=== PATIENT | male | born 1975 | race Caucasian/White ===

== ENCOUNTER 2017-12-28 21:37 | Inpatient (IN) | payer SELFPAY, OTHER ==
[2017-12-28 21:59] LABS: BILIRUBIN,URINE NEGATIVE (NEG); CLARITY,URINE CLEAR; COLOR,URINE YELLOW; GLUCOSE,URINE NEGATIVE (NEG); NITRITE,URINE NEGATIVE (NEG); PH,URINE 6.5; PROTEIN,URINE NEGATIVE (NEG-TRACE)
[2017-12-28 22:07] LABS: BACTERIA,URINE 0 /HPF (0-FEW); HYALINE CASTS, URINE FEW /HPF; RBC,URINE OCC /HPF (0-2); SQUAMOUS EPITHELIAL CELL,UR OCC /LPF; WBC,URINE OCC /HPF (0-4)
[2017-12-28] MEDS ORDERED: ONDANSETRON PF 4 MG/2 ML VIAL. (22:09)
[2017-12-28] MEDS ORDERED: MORPHINE SULFATE 4 MG/ML DISP.SYRIN. (22:10)
[2017-12-28] MEDS: MORPHINE SULFATE 4 MG/ML DISP.SYRIN. IV (22:10)
[2017-12-28] MEDS: ONDANSETRON PF 4 MG/2 ML VIAL. IV (22:10)
[2017-12-28 22:13] LABS: ADD MAN DIFF? NO
[2017-12-28 22:15] LABS: BASO # 0.1 x10^3/uL (0.0-0.2); BASO % 1 % (0-3); EOS # 0.4 x10^3/uL (0.0-0.7); EOS % 2 % (0-3); HEMOGLOBIN 15.9 g/dL (13.0-17.5); LYMPH % 30 % (24-48); MEAN CORPUSCULAR HEMOGLOBIN 32 pg (25-35); MEAN CORPUSCULAR HGB CONC 35 g/dL (31-37); MEAN CORPUSCULAR VOLUME 89 fL (79-100); MONO # 1.6 x10^3/uL (0.0-1.1); MONO % 9 % (0-9); NEUT # 9.6 x10^3uL (1.8-7.7); NEUT % 58 % (31-73); PLATELET COUNT 369 x10^3/uL (140-400); RED BLOOD COUNT 5.04 x10^6/uL (4.30-5.70); RED CELL DISTRIBUTION WIDTH 13.5 % (11.5-14.5); WHITE BLOOD COUNT 16.7 x10^3/uL (4.0-11.0)
[2017-12-28 22:22] LABS: ANION GAP 5 (6-14); BLOOD UREA NITROGEN 18 mg/dL (8-26); CALCIUM 8.8 mg/dL (8.5-10.1); CARBON DIOXIDE 32 mmol/L (21-32); CHLORIDE 101 mmol/L (98-107); CREATININE 1.3 mg/dL (0.7-1.3); GLUCOSE 142 mg/dL (70-99); POTASSIUM 3.6 mmol/L (3.5-5.1); SODIUM 138 mmol/L (136-145)
[2017-12-28] MEDS: HYDROmorphone 2 MG/ML VIAL IV (22:41)
[2017-12-28] MEDS: PROMETHAZINE 12.5 MG in IV DEXTROSE 5% 50 ML IV (23:00)
[2017-12-28] MEDS: KETOROLAC 30 MG/ML INJ. IV (23:17)
[2017-12-28] MEDS ORDERED: ONDANSETRON PF 4 MG/2 ML VIAL. IV (23:45)
[2017-12-28] MEDS: IV NORMAL SALINE 1000ML BAG 1,000 ML IV (23:45)
[2017-12-29] MEDS: IV NORMAL SALINE 1000ML BAG 1,000 ML IV ×5 (00:40→19:45)
[2017-12-29] MEDS: MORPHINE SULFATE 4 MG/ML DISP.SYRIN. IV ×9 (02:13→23:43)
[2017-12-29 03:57] LABS: BASO % 0 % (0-3); EOS % 0 % (0-3); HEMATOCRIT 42.3 % (39.0-53.0); HEMOGLOBIN 14.4 g/dL (13.0-17.5); LYMPH # 1.3 x10^3/uL (1.0-4.8); LYMPH % 7 % (24-48); MEAN CORPUSCULAR HEMOGLOBIN 31 pg (25-35); MEAN CORPUSCULAR HGB CONC 34 g/dL (31-37); MEAN CORPUSCULAR VOLUME 90 fL (79-100); MONO # 1.6 x10^3/uL (0.0-1.1); MONO % 8 % (0-9); NEUT # 16.6 x10^3uL (1.8-7.7); NEUT % 85 % (31-73); PLATELET COUNT 230 x10^3/uL (140-400); RED CELL DISTRIBUTION WIDTH 13.4 % (11.5-14.5); WHITE BLOOD COUNT 19.6 x10^3/uL (4.0-11.0)
[2017-12-29 04:05] LABS: ADD MAN DIFF? YES
[2017-12-29 04:07] LABS: ANION GAP 6 (6-14); BLOOD UREA NITROGEN 22 mg/dL (8-26); CALCIUM 8.5 mg/dL (8.5-10.1); CARBON DIOXIDE 27 mmol/L (21-32); CHLORIDE 101 mmol/L (98-107); GFR 81.2; GLUCOSE 108 mg/dL (70-99); SODIUM 134 mmol/L (136-145)
[2017-12-29 04:30] LABS: TROPONINI < 0.017 ng/mL (0.000-0.055)
[2017-12-29 04:34] LABS: POTASSIUM 4.2 mmol/L (3.5-5.1)
[2017-12-29] MEDS: IPRATRPIUM/ALBUTEROL 0.5/2.5MG 3 ML NEBU. NEB ×4 (08:21→20:06)
[2017-12-29 09:02] LABS: % BANDS 11 % (0-9); % LYMPHS 11 % (24-48); % MONOS 6 % (0-10); % SEGS 72 % (35-66); PLT ESTIMATE ADEQUATE (ADEQUATE)
[2017-12-29] MEDS ORDERED: CONTRAST GIVEN MC (10:00)
[2017-12-29] MEDS: IOHEXOL 300 MG/ML 100ML VIAL. IV (10:21)
[2017-12-29 10:25] LABS: BARBITURATES NEG (NEG); BENZODIAZEPINES NEG (NEG); CANNABINOIDS NEG (NEG); COCAINE NEG (NEG); METHADONE NEG (NEG); OPIATES NEG (NEG); PHENCYCLIDINE NEG (NEG)
[2017-12-29 10:26] LABS: AMPHETAMINE/METHAMPHETAMINE POS (NEG); ETHANOL, URINE NEG (NEG)
[2017-12-29 12:20] LABS: TROPONINI < 0.017 ng/mL (0.000-0.055)
[2017-12-29] MEDS ORDERED: VANCOMYCIN 1 GM in IV DEXTROSE 5% 250 ML IV (13:15)
[2017-12-29] MEDS: PIPERACILLIN/TAZOBACTAM 3.375 GM in IV NORMAL SALINE 50ML 50 ML IV ×3 (14:33→23:45)
[2017-12-29] MEDS: VANCOMYCIN 2 GM in IV DEXTROSE 5 %-0.2 % NACL 500 ML IV (16:12)
[2017-12-29] MEDS: VANCOMYCIN PER PHARMACY MC (16:20)
[2017-12-29] MEDS: ACETAMINOPHEN 325 MG TABLET. PO (18:32)
[2017-12-29 18:53] LABS: TROPONINI < 0.017 ng/mL (0.000-0.055)
[2017-12-30] MEDS: MORPHINE SULFATE 4 MG/ML DISP.SYRIN. IV ×6 (01:46→19:23)
[2017-12-30 03:57] LABS: ADD MAN DIFF? NO
[2017-12-30] MEDS: VANCOMYCIN 1.25 GM in IV DEXTROSE 5 %-0.2 % NACL 250 ML IV ×2 (04:05→15:57)
[2017-12-30 04:12] LABS: BASO % 0 % (0-3); EOS # 0.2 x10^3/uL (0.0-0.7); EOS % 1 % (0-3); HEMATOCRIT 42.3 % (39.0-53.0); HEMOGLOBIN 14.6 g/dL (13.0-17.5); LYMPH # 1.4 x10^3/uL (1.0-4.8); LYMPH % 8 % (24-48); MEAN CORPUSCULAR HEMOGLOBIN 31 pg (25-35); MEAN CORPUSCULAR HGB CONC 35 g/dL (31-37); MEAN CORPUSCULAR VOLUME 91 fL (79-100); MONO # 1.6 x10^3/uL (0.0-1.1); MONO % 9 % (0-9); NEUT # 14.2 x10^3uL (1.8-7.7); NEUT % 81 % (31-73); PLATELET COUNT 221 x10^3/uL (140-400); RED BLOOD COUNT 4.65 x10^6/uL (4.30-5.70); RED CELL DISTRIBUTION WIDTH 13.3 % (11.5-14.5); WHITE BLOOD COUNT 17.4 x10^3/uL (4.0-11.0)
[2017-12-30 04:27] LABS: ANION GAP 10 (6-14); BLOOD UREA NITROGEN 15 mg/dL (8-26); CALCIUM 8.4 mg/dL (8.5-10.1); CARBON DIOXIDE 26 mmol/L (21-32); CHLORIDE 101 mmol/L (98-107); CREATININE 1.1 mg/dL (0.7-1.3); GFR 72.7; GLUCOSE 100 mg/dL (70-99); POTASSIUM 3.8 mmol/L (3.5-5.1); SODIUM 137 mmol/L (136-145)
[2017-12-30] MEDS: PIPERACILLIN/TAZOBACTAM 3.375 GM in IV NORMAL SALINE 50ML 50 ML IV ×4 (06:17→23:45)
[2017-12-30] MEDS: ACETAMINOPHEN 325 MG TABLET. PO ×2 (06:50→14:38)
[2017-12-30] MEDS ORDERED: guaiFENesin DM 200MG/20MG 10 ML SYRUP PO (11:30)
[2017-12-30] MEDS: VANCOMYCIN PER PHARMACY MC (13:51)
[2017-12-30] MEDS: KETOROLAC 15 MG/ML VIAL. IV ×2 (15:54→21:26)
[2017-12-30] MEDS: IPRATRPIUM/ALBUTEROL 0.5/2.5MG 3 ML NEBU. NEB (18:35)
[2017-12-30] MEDS: LACTOBACILLUS RHAMNOSUS GG 1 CAPSULE. PO (20:28)
[2017-12-31] MEDS: ACETAMINOPHEN 325 MG TABLET. PO ×2 (03:20→11:56)
[2017-12-31 04:10] LABS: VANC TR 6.4 mcg/mL (10.0-20.0)
[2017-12-31] MEDS: VANCOMYCIN 1.25 GM in IV DEXTROSE 5 %-0.2 % NACL 250 ML IV ×3 (04:26→20:56)
[2017-12-31] MEDS: KETOROLAC 15 MG/ML VIAL. IV ×3 (05:46→23:00)
[2017-12-31] MEDS: VANCOMYCIN PER PHARMACY MC ×2 (05:50→14:26)
[2017-12-31] MEDS: PIPERACILLIN/TAZOBACTAM 3.375 GM in IV NORMAL SALINE 50ML 50 ML IV ×4 (06:16→23:06)
[2017-12-31] MEDS: IPRATRPIUM/ALBUTEROL 0.5/2.5MG 3 ML NEBU. NEB ×2 (07:58→11:34)
[2017-12-31] MEDS: LACTOBACILLUS RHAMNOSUS GG 1 CAPSULE. PO ×2 (09:00→20:05)
[2017-12-31] MEDS: ONDANSETRON PF 4 MG/2 ML VIAL. IV (11:20)
[2017-12-31] MEDS: oxyCODONE/APAP 5/325 1 TAB TABLET PO ×2 (11:56→20:08)
[2017-12-31] MEDS ORDERED: ALBUTEROL SULFATE 2.5 MG/3 ML NEBU. IH (12:30)
[2017-12-31] MEDS: PROMETHAZINE 12.5 MG in IV DEXTROSE 5% 50 ML IV (13:01)
[2018-01-01] MEDS: PIPERACILLIN/TAZOBACTAM 3.375 GM in IV NORMAL SALINE 50ML 50 ML IV ×3 (05:10→18:09)
[2018-01-01] MEDS: KETOROLAC 15 MG/ML VIAL. IV ×3 (05:11→21:07)
[2018-01-01 05:27] LABS: ADD MAN DIFF? NO
[2018-01-01 05:37] LABS: BASO # 0.1 x10^3/uL (0.0-0.2); BASO % 0 % (0-3); EOS # 0.1 x10^3/uL (0.0-0.7); EOS % 1 % (0-3); HEMATOCRIT 38.1 % (39.0-53.0); HEMOGLOBIN 13.3 g/dL (13.0-17.5); LYMPH # 0.8 x10^3/uL (1.0-4.8); LYMPH % 4 % (24-48); MEAN CORPUSCULAR HEMOGLOBIN 32 pg (25-35); MEAN CORPUSCULAR HGB CONC 35 g/dL (31-37); MEAN CORPUSCULAR VOLUME 90 fL (79-100); MONO # 1.7 x10^3/uL (0.0-1.1); MONO % 9 % (0-9); NEUT # 16.4 x10^3uL (1.8-7.7); NEUT % 86 % (31-73); PLATELET COUNT 268 x10^3/uL (140-400); RED BLOOD COUNT 4.24 x10^6/uL (4.30-5.70); RED CELL DISTRIBUTION WIDTH 13.1 % (11.5-14.5); WHITE BLOOD COUNT 19.1 x10^3/uL (4.0-11.0)
[2018-01-01 06:01] LABS: ANION GAP 6 (6-14); BLOOD UREA NITROGEN 18 mg/dL (8-26); CARBON DIOXIDE 29 mmol/L (21-32); CHLORIDE 102 mmol/L (98-107); CREATININE 2.1 mg/dL (0.7-1.3); GFR 34.5; GLUCOSE 113 mg/dL (70-99); POTASSIUM 3.9 mmol/L (3.5-5.1); SODIUM 137 mmol/L (136-145)
[2018-01-01 06:07] LABS: VANC TR 19.8 mcg/mL (10.0-20.0)
[2018-01-01] MEDS: VANCOMYCIN PER PHARMACY MC (06:21)
[2018-01-01] MEDS: VANCOMYCIN 1.25 GM in IV DEXTROSE 5 %-0.2 % NACL 250 ML IV (06:23)
[2018-01-01] MEDS: LACTOBACILLUS RHAMNOSUS GG 1 CAPSULE. PO ×2 (08:55→21:07)
[2018-01-01] MEDS: IV NORMAL SALINE 1000ML BAG 1,000 ML IV ×2 (09:38→21:08)
[2018-01-01 10:26] LABS: INFLUENZA A PATIENT NEGATIVE (NEGATIVE); INFLUENZA B PATIENT NEGATIVE (NEGATIVE); OBC FLU VALID
[2018-01-01] MEDS: PROMETH/CODEINE 6.25/10MG 5 ML SYRUP. PO ×3 (12:10→21:07)
[2018-01-01] MEDS ORDERED: CALCIUM CARBONATE 500 MG TAB.CHEW PO (12:30)
[2018-01-01 14:51] LABS: BILIRUBIN,URINE NEGATIVE (NEG); CLARITY,URINE CLOUDY; COLOR,URINE YELLOW; GLUCOSE,URINE NEGATIVE (NEG); NITRITE,URINE NEGATIVE (NEG); PROTEIN,URINE 100 mg/dL (NEG-TRACE)
[2018-01-01 15:11] LABS: AMORPHOUS SEDIMENT,UR PRESENT /HPF; BACTERIA,URINE 0 /HPF (0-FEW)
[2018-01-02] MEDS: PIPERACILLIN/TAZOBACTAM 3.375 GM in IV NORMAL SALINE 50ML 50 ML IV ×4 (00:12→17:44)
[2018-01-02] MEDS: oxyCODONE/APAP 5/325 1 TAB TABLET PO ×2 (00:37→22:18)
[2018-01-02 05:01] LABS: ADD MAN DIFF? NO
[2018-01-02] MEDS: KETOROLAC 15 MG/ML VIAL. IV (05:04)
[2018-01-02 05:08] LABS: BASO % 0 % (0-3); EOS # 0.2 x10^3/uL (0.0-0.7); EOS % 1 % (0-3); HEMATOCRIT 37.8 % (39.0-53.0); HEMOGLOBIN 12.8 g/dL (13.0-17.5); LYMPH # 1.3 x10^3/uL (1.0-4.8); LYMPH % 8 % (24-48); MEAN CORPUSCULAR HEMOGLOBIN 31 pg (25-35); MEAN CORPUSCULAR HGB CONC 34 g/dL (31-37); MEAN CORPUSCULAR VOLUME 91 fL (79-100); MONO # 1.6 x10^3/uL (0.0-1.1); MONO % 10 % (0-9); NEUT # 12.6 x10^3uL (1.8-7.7); NEUT % 80 % (31-73); PLATELET COUNT 255 x10^3/uL (140-400); RED BLOOD COUNT 4.16 x10^6/uL (4.30-5.70); RED CELL DISTRIBUTION WIDTH 13.4 % (11.5-14.5); WHITE BLOOD COUNT 15.7 x10^3/uL (4.0-11.0)
[2018-01-02] MEDS: IV NORMAL SALINE 1000ML BAG 1,000 ML IV ×2 (05:15→13:46)
[2018-01-02 05:28] LABS: ANION GAP 7 (6-14); CALCIUM 8.7 mg/dL (8.5-10.1); CARBON DIOXIDE 27 mmol/L (21-32); CHLORIDE 105 mmol/L (98-107); CREATININE 4.1 mg/dL (0.7-1.3); GFR 15.9; GLUCOSE 106 mg/dL (70-99); POTASSIUM 3.9 mmol/L (3.5-5.1); SODIUM 139 mmol/L (136-145)
[2018-01-02 05:32] LABS: BLOOD UREA NITROGEN 32 mg/dL (8-26)
[2018-01-02] MEDS: PROMETH/CODEINE 6.25/10MG 5 ML SYRUP. PO ×4 (09:55→20:25)
[2018-01-02] MEDS: LACTOBACILLUS RHAMNOSUS GG 1 CAPSULE. PO ×2 (09:56→20:24)
[2018-01-02 14:22] LABS: SPECIMEN SOURCE Urine (.); STREP PNEUMO ANTIGEN Negative (Negative)
[2018-01-02 14:42] LABS: ANION GAP 5 (6-14); BLOOD UREA NITROGEN 34 mg/dL (8-26); CALCIUM 8.6 mg/dL (8.5-10.1); CARBON DIOXIDE 29 mmol/L (21-32); CHLORIDE 104 mmol/L (98-107); CREATININE 4.5 mg/dL (0.7-1.3); GFR 14.3; GLUCOSE 87 mg/dL (70-99); POTASSIUM 3.8 mmol/L (3.5-5.1); SODIUM 138 mmol/L (136-145)
[2018-01-02] MEDS: ONDANSETRON PF 4 MG/2 ML VIAL. IV (19:55)
[2018-01-03] MEDS: PIPERACILLIN/TAZOBACTAM 3.375 GM in IV NORMAL SALINE 50ML 50 ML IV ×4 (00:03→18:15)
[2018-01-03] MEDS: IV NORMAL SALINE 1000ML BAG 1,000 ML IV (00:03)
[2018-01-03 05:28] LABS: ANION GAP 9 (6-14); BLOOD UREA NITROGEN 37 mg/dL (8-26); CALCIUM 8.6 mg/dL (8.5-10.1); CARBON DIOXIDE 26 mmol/L (21-32); CHLORIDE 105 mmol/L (98-107); CREATININE 4.9 mg/dL (0.7-1.3); GLUCOSE 79 mg/dL (70-99); SODIUM 140 mmol/L (136-145)
[2018-01-03] MEDS: PROMETH/CODEINE 6.25/10MG 5 ML SYRUP. PO ×4 (09:00→21:14)
[2018-01-03] MEDS: LACTOBACILLUS RHAMNOSUS GG 1 CAPSULE. PO ×2 (09:00→21:14)
[2018-01-03 09:05] LABS: INR 1.2 (0.8-1.1); PROTHROMBIN TIME PATIENT 14.8 SEC (11.7-14.0)
[2018-01-03] MEDS ORDERED: LIDOCAINE WITH 8.4% SOD BICARB 3 ML DISP.SYRIN. ×2 (10:23→10:57)
[2018-01-03] MEDS ORDERED: fentaNYL PF VIAL 100 MCG/2 ML VIAL (10:29)
[2018-01-03] MEDS ORDERED: FLUMAZENIL 0.5 MG/5 ML VIAL. IV (10:29)
[2018-01-03] MEDS ORDERED: MIDAZOLAM HCL/PF 2 MG/2 ML VIAL. (10:29)
[2018-01-03] MEDS ORDERED: MAGNESIUM SULFATE 2GM 50 ML IV (10:30)
[2018-01-03] MEDS ORDERED: NALOXONE 0.4 MG/ML VIAL. (10:30)
[2018-01-03] MEDS: LIDOCAINE WITH 8.4% SOD BICARB 3 ML DISP.SYRIN. IJ (10:45)
[2018-01-03] MEDS: MIDAZOLAM HCL/PF 2 MG/2 ML VIAL. IV ×2 (10:45)
[2018-01-03] MEDS: fentaNYL PF VIAL 100 MCG/2 ML VIAL IV ×2 (10:45)
[2018-01-03] MEDS ORDERED: HEPARIN for IV BOLUS 10,000 UNIT/10 ML VIAL. (10:57)
[2018-01-03 11:45] LABS: PH,BODY FLUID 6.92
[2018-01-03] MEDS: oxyCODONE/APAP 5/325 1 TAB TABLET PO ×2 (15:33→23:17)
[2018-01-03] MEDS: MORPHINE SULFATE 4 MG/ML DISP.SYRIN. IV (15:37)
[2018-01-03 23:10] LABS: HEP B SURFACE ABDY Non Reactive (.); HEP B SURFACE AG Negative (Negative)
[2018-01-04] MEDS: PIPERACILLIN/TAZOBACTAM 3.375 GM in IV NORMAL SALINE 50ML 50 ML IV ×5 (00:31→23:36)
[2018-01-04] MEDS: MORPHINE SULFATE 4 MG/ML DISP.SYRIN. IV ×6 (00:37→23:58)
[2018-01-04 05:36] LABS: HEMOGLOBIN 12.8 g/dL (13.0-17.5)
[2018-01-04 06:20] LABS: ALBUMIN 1.7 g/dL (3.4-5.0); ANION GAP 10 (6-14); BLOOD UREA NITROGEN 30 mg/dL (8-26); CALCIUM 8.3 mg/dL (8.5-10.1); CARBON DIOXIDE 27 mmol/L (21-32); CHLORIDE 102 mmol/L (98-107); CREATININE 4.1 mg/dL (0.7-1.3); GFR 15.9; GLUCOSE 100 mg/dL (70-99); PHOSPHORUS 3.5 mg/dL (2.6-4.7); POTASSIUM 3.8 mmol/L (3.5-5.1); SODIUM 139 mmol/L (136-145)
[2018-01-04] MEDS: LACTOBACILLUS RHAMNOSUS GG 1 CAPSULE. PO ×2 (07:58→20:23)
[2018-01-04] MEDS: oxyCODONE/APAP 5/325 1 TAB TABLET PO ×2 (07:58→16:35)
[2018-01-04] MEDS: PROMETH/CODEINE 6.25/10MG 5 ML SYRUP. PO ×4 (07:59→20:23)
[2018-01-04] MEDS ORDERED: IV NORMAL SALINE 1000ML BAG 1,000 ML IV ×2 (08:30)
[2018-01-04] MEDS ORDERED: diphenhydrAMINE 50 MG/ML VIAL IV ×2 (08:30)
[2018-01-04] MEDS ORDERED: DIALYSIS PATIENT. MC (11:00)
[2018-01-04 11:41] LABS: BODY FLUID GLUCOSE 14 mg/dL (.)
[2018-01-04 11:41] LABS: BODY FLUID LDH 2138 IU/L (.)
[2018-01-04] MEDS ORDERED: ALTEPLASE MC (12:00)
[2018-01-04] MEDS ORDERED: TOTAL VOLUME MC (12:00)
[2018-01-04] MEDS: ALTEPLASE INT CAT (12:00)
[2018-01-04] MEDS: TOTAL VOLUME INT CAT (12:00)
[2018-01-04] MEDS: STERILE WATER INT CAT (12:00)
[2018-01-04] MEDS ORDERED: NORMAL SALINE MC (12:00)
[2018-01-04] MEDS: DOCUSATE SODIUM 100 MG CAPSULE. PO ×2 (12:36→20:23)
[2018-01-04] MEDS: POLYETHYLENE GLYCOL 3350 17 GM PACKET. PO (12:36)
[2018-01-05] MEDS: MORPHINE SULFATE 4 MG/ML DISP.SYRIN. IV ×7 (01:40→22:55)
[2018-01-05] MEDS: PIPERACILLIN/TAZOBACTAM 3.375 GM in IV NORMAL SALINE 50ML 50 ML IV ×4 (05:35→22:54)
[2018-01-05 06:30] LABS: ALBUMIN 1.8 g/dL (3.4-5.0); ANION GAP 13 (6-14); BLOOD UREA NITROGEN 22 mg/dL (8-26); CALCIUM 8.5 mg/dL (8.5-10.1); CARBON DIOXIDE 26 mmol/L (21-32); CHLORIDE 104 mmol/L (98-107); CREATININE 3.8 mg/dL (0.7-1.3); GFR 17.4; GLUCOSE 89 mg/dL (70-99); PHOSPHORUS 3.8 mg/dL (2.6-4.7); SODIUM 143 mmol/L (136-145)
[2018-01-05] MEDS ORDERED: IV NORMAL SALINE 1000ML BAG 1,000 ML IV ×2 (07:49)
[2018-01-05] MEDS: BISACODYL 10 MG SUPP.RECT. PR (07:54)
[2018-01-05] MEDS: PROMETH/CODEINE 6.25/10MG 5 ML SYRUP. PO ×4 (07:54→20:38)
[2018-01-05] MEDS: LACTOBACILLUS RHAMNOSUS GG 1 CAPSULE. PO ×2 (07:54→20:38)
[2018-01-05] MEDS: DOCUSATE SODIUM 100 MG CAPSULE. PO ×2 (07:55→20:38)
[2018-01-05] MEDS: BISACODYL 5 MG TABLET.DR. PO (07:57)
[2018-01-05] MEDS ORDERED: DIALYSIS PATIENT. MC ×2 (08:00)
[2018-01-05] MEDS ORDERED: ALBUMIN HUMAN 25% 200 ML IV (08:00)
[2018-01-05] MEDS: POLYETHYLENE GLYCOL 3350 17 GM PACKET. PO (08:11)
[2018-01-05] MEDS: oxyCODONE/APAP 5/325 1 TAB TABLET PO ×4 (08:52→21:43)
[2018-01-05] MEDS: ONDANSETRON PF 4 MG/2 ML VIAL. IV (08:52)
[2018-01-05] MEDS: STERILE WATER INT CAT (10:45)
[2018-01-05] MEDS: TOTAL VOLUME INT CAT (10:45)
[2018-01-05] MEDS: ALTEPLASE INT CAT (10:45)
[2018-01-05 11:16] LABS: HEMATOCRIT 38.9 % (39.0-53.0); HEMOGLOBIN 12.9 g/dL (13.0-17.5); MEAN CORPUSCULAR HEMOGLOBIN 30 pg (25-35); MEAN CORPUSCULAR HGB CONC 33 g/dL (31-37); MEAN CORPUSCULAR VOLUME 91 fL (79-100); PLATELET COUNT 302 x10^3/uL (140-400); RED BLOOD COUNT 4.28 x10^6/uL (4.30-5.70); RED CELL DISTRIBUTION WIDTH 13.3 % (11.5-14.5); WHITE BLOOD COUNT 12.4 x10^3/uL (4.0-11.0)
[2018-01-06] MEDS: MORPHINE SULFATE 4 MG/ML DISP.SYRIN. IV ×5 (01:18→21:49)
[2018-01-06] MEDS: oxyCODONE/APAP 5/325 1 TAB TABLET PO (04:55)
[2018-01-06] MEDS: PIPERACILLIN/TAZOBACTAM 3.375 GM in IV NORMAL SALINE 50ML 50 ML IV ×2 (04:56→12:29)
[2018-01-06 06:05] LABS: MAGNESIUM 2.2 mg/dL (1.8-2.4)
[2018-01-06 06:07] LABS: ALBUMIN 1.7 g/dL (3.4-5.0); ANION GAP 8 (6-14); BLOOD UREA NITROGEN 30 mg/dL (8-26); CALCIUM 8.3 mg/dL (8.5-10.1); CARBON DIOXIDE 28 mmol/L (21-32); CHLORIDE 103 mmol/L (98-107); CREATININE 4.3 mg/dL (0.7-1.3); GFR 15.1; GLUCOSE 96 mg/dL (70-99); PHOSPHORUS 4.6 mg/dL (2.6-4.7); POTASSIUM 3.9 mmol/L (3.5-5.1); SODIUM 139 mmol/L (136-145)
[2018-01-06] MEDS: BISACODYL 5 MG TABLET.DR. PO (08:55)
[2018-01-06] MEDS: LACTOBACILLUS RHAMNOSUS GG 1 CAPSULE. PO ×2 (08:56→21:44)
[2018-01-06] MEDS: PROMETH/CODEINE 6.25/10MG 5 ML SYRUP. PO ×4 (08:56→21:44)
[2018-01-06] MEDS: DOCUSATE SODIUM 100 MG CAPSULE. PO ×2 (08:56→21:44)
[2018-01-06] MEDS: POLYETHYLENE GLYCOL 3350 17 GM PACKET. PO (09:00)
[2018-01-06] MEDS ORDERED: diphenhydrAMINE HCL 25 MG CAPSULE PO (12:30)
[2018-01-06] MEDS ORDERED: IV NORMAL SALINE 1000ML BAG 1,000 ML IV ×2 (14:21)
[2018-01-06] MEDS ORDERED: DIALYSIS PATIENT. MC (14:30)
[2018-01-06] MEDS: PIPERACILLIN/TAZOBACTAM 2.25 GM in IV NORMAL SALINE 50ML 50 ML IV (21:46)
[2018-01-06] MEDS: ACETAMINOPHEN 325 MG TABLET. PO (21:59)
[2018-01-07] MEDS: PIPERACILLIN/TAZOBACTAM 2.25 GM in IV NORMAL SALINE 50ML 50 ML IV ×3 (05:41→22:42)
[2018-01-07 05:54] LABS: ALBUMIN 1.8 g/dL (3.4-5.0); ANION GAP 7 (6-14); BLOOD UREA NITROGEN 17 mg/dL (8-26); CALCIUM 8.3 mg/dL (8.5-10.1); CARBON DIOXIDE 27 mmol/L (21-32); CHLORIDE 105 mmol/L (98-107); CREATININE 3.4 mg/dL (0.7-1.3); GFR 19.8; GLUCOSE 104 mg/dL (70-99); PHOSPHORUS 3.3 mg/dL (2.6-4.7); POTASSIUM 3.7 mmol/L (3.5-5.1); SODIUM 139 mmol/L (136-145)
[2018-01-07 07:02] LABS: MAGNESIUM 2.1 mg/dL (1.8-2.4)
[2018-01-07] MEDS: PROMETH/CODEINE 6.25/10MG 5 ML SYRUP. PO ×4 (08:47→20:02)
[2018-01-07] MEDS: BISACODYL 5 MG TABLET.DR. PO (08:48)
[2018-01-07] MEDS: LACTOBACILLUS RHAMNOSUS GG 1 CAPSULE. PO ×2 (08:48→20:01)
[2018-01-07] MEDS: POLYETHYLENE GLYCOL 3350 17 GM PACKET. PO (08:48)
[2018-01-07] MEDS: DOCUSATE SODIUM 100 MG CAPSULE. PO ×2 (08:48→20:01)
[2018-01-07] MEDS: oxyCODONE/APAP 5/325 1 TAB TABLET PO (20:01)
[2018-01-08] MEDS: oxyCODONE/APAP 5/325 1 TAB TABLET PO (04:41)
[2018-01-08] MEDS: PIPERACILLIN/TAZOBACTAM 2.25 GM in IV NORMAL SALINE 50ML 50 ML IV (04:42)
[2018-01-08 05:35] LABS: MAGNESIUM 2.1 mg/dL (1.8-2.4)
[2018-01-08 05:38] LABS: ALBUMIN 1.8 g/dL (3.4-5.0); ANION GAP 11 (6-14); BLOOD UREA NITROGEN 21 mg/dL (8-26); CALCIUM 8.1 mg/dL (8.5-10.1); CARBON DIOXIDE 24 mmol/L (21-32); CHLORIDE 107 mmol/L (98-107); CREATININE 3.9 mg/dL (0.7-1.3); GFR 16.9; GLUCOSE 114 mg/dL (70-99); PHOSPHORUS 3.3 mg/dL (2.6-4.7); POTASSIUM 3.5 mmol/L (3.5-5.1); SODIUM 142 mmol/L (136-145)
[2018-01-08] MEDS ORDERED: AMOXICILLIN/K CLAV 500/125MG TABLET. PO (21:00)
== END 2018-01-08 09:30 | disposition left against medical advice (07) | DRG 871 ==
LOC: 5 SOUTH 23:30 → ER 21:37
PROC: 5A1D70Z Performance of Urinary Filtration, Intermittent, Less than 6 Hours Per Day (ICD-10-PCS; 2017-12-28)
PROC: 5A1D70Z Performance of Urinary Filtration, Intermittent, Less than 6 Hours Per Day (ICD-10-PCS; 2017-12-28)
PROC: 02H633Z Insertion of Infusion Device into Right Atrium, Percutaneous Approach (ICD-10-PCS; 2017-12-31)
PROC: B244ZZZ Ultrasonography of Right Heart (ICD-10-PCS; 2017-12-31)
PROC: B2141ZZ Fluoroscopy of Right Heart using Low Osmolar Contrast (ICD-10-PCS; 2017-12-31)
PROC: 0W9B30Z Drainage of Left Pleural Cavity with Drainage Device, Percutaneous Approach (ICD-10-PCS; 2018-01-03)
PROC: 3E0L3GC Introduction of Other Therapeutic Substance into Pleural Cavity, Percutaneous Approach (ICD-10-PCS; principal; 2018-01-04)
PROC: 3E0L3GC Introduction of Other Therapeutic Substance into Pleural Cavity, Percutaneous Approach (ICD-10-PCS; 2018-01-05)
DX: A41.9 Sepsis, unspecified organism (principal); J18.1 Lobar pneumonia, unspecified organism; N17.0 Acute kidney failure with tubular necrosis; J90 Pleural effusion, not elsewhere classified; F17.211 Nicotine dependence, cigarettes, in remission; I10 Essential (primary) hypertension; K59.00 Constipation, unspecified; Z87.442 Personal history of urinary calculi; Z91.15 Patient's noncompliance with renal dialysis; Z80.9 Family history of malignant neoplasm, unspecified; T50.8X5A Adverse effect of diagnostic agents, initial encounter; N14.1 Nephropathy induced by other drugs, medicaments and biological substances
CPT/HCPCS: 32557; 36415; 36556; 71045; 71275; 74176; 76937; 80048; 80069; 80202; 80307; 81001; 82945; 83605; 83615; 83735; 83986; 84157; 84484; 85007; 85018; 85025; 85027; 85610; 86706; 87040; 87071; 87075; 87205; 87340; 87449; 87804; 87804-59; 88112; 88305; 93005; 94640; 94760; 96361; 96365; 96367; 96375; 96376; 97116-GP; 97162-GP; 97165-GO; 99152; 99285; 99285-25; A4215; C1729; C1769; C1892; C1894; J1170; J1885; J1956; J2250; J2270; J2405; J2543; J2550; J2997; J3010; J3370; J7030; J7620; Q9967

== ENCOUNTER 2018-07-16 20:56 | Emergency (ER) | payer SELFPAY ==
[~2018-07-16] VITALS: Ht 175.3 cm; Wt 81.6 kg
[2018-07-16 21:05] VITALS: BP 133/83
--- NOTE | 2018-07-16 21:54 | PHYS DOC ---
Past Medical History Past Medical History: Hypertension, Kidney Stone Past Surgical History: Other Additional Past Surgical Histo: kidney stones, lt foot sx Alcohol Use: None Drug Use: None Adult General Chief Complaint Chief Complaint: COUGH HPI HPI 42-year-old male presents for evaluation of chills, sore throat, cough, headache for 4 days. Patient was seen 2 days ago at [facility] emergency room and diagnosed with an upper respiratory infection. He was sent home with a prescription for Tessalon Perles. He had a negative influenza test and had a chest x-ray done at that time. He states he continues to not feel well. He denies cigarette smoking. Review of Systems Review of Systems Eyes: Denies change in visual acuity, redness, or eye pain [] Respiratory: Denies cough or shortness of breath [] Cardiovascular: No additional information not addressed in HPI [] GI: Denies abdominal pain, nausea, vomiting, bloody stools or diarrhea [] : Denies dysuria or hematuria [] Musculoskeletal: Denies back pain or joint pain [] Integument: Denies rash or skin lesions [] Neurologic: Denies headache, focal weakness or sensory changes [] Endocrine: Denies polyuria or polydipsia [] All other systems were reviewed and found to be within normal limits, except as documented in this note. Current Medications Current Medications Current Medications Medications (Trade) Dose Ordered Sig/Donal Start Time Stop Time Status Last Admin Dose Admin Albuterol/ Ipratropium (Duoneb) 3 ml 1X ONCE 07/16/18 22:00 07/16/18 22:01 DC 07/16/18 22:00 3 ML Prednisone (Prednisone) 60 mg 1X ONCE 07/16/18 22:00 07/16/18 22:01 DC 07/16/18 22:33 60 MG Allergies Allergies Allergies Coded Allergies Type Severity Reaction Last Updated Verified No Known Drug Allergies 01/15/14 No Physical Exam Physical Exam Constitutional: Well developed, well nourished, no acute distress, non-toxic appearance. [] HENT: Normocephalic, atraumatic, bilateral external ears normal, oropharynx erythematous, no oral exudates, nose normal. [] Neck: Normal range of motion, no tenderness, supple, no stridor. [] Cardiovascular:Heart rate regular rhythm, no murmur [] Lungs & Thorax: Diffuse wheezes to auscultation [] Skin: Warm, dry, no erythema, no rash. [] Neurologic: Alert and oriented X 3, normal motor function, normal sensory function, no focal deficits noted. [] Psychologic: Affect normal, judgement normal, mood normal. [] Current Patient Data Vital Signs Vital Signs Date Time Temp Pulse Resp B/P (MAP) Pulse Ox O2 Delivery O2 Flow Rate FiO2 07/16/18 23:08 96 Room Air 07/16/18 21:05 98.1 79 18 133/83 (100) 98.1 Lab Values Laboratory Tests Test 07/16/18 21:13 Group A Streptococcus Rapid Negative (NEGATIVE) Microbiology 07/16/18 Throat Culture - Final, Complete 07/16/18 - Final, Complete EKG EKG [] Radiology/Procedures Radiology/Procedures []Chest x-ray with infiltrates was read by myself and Dr. Santos Course & Med Decision Making Course & Med Decision Making Pertinent Labs and Imaging studies reviewed. (See chart for details) [Chest x-ray with infiltrates concerning for pneumonia. Patient is given nebulizer treatment and prednisone tonight in the emergency room, started on antibiotics. Recommend close follow-up with primary care doctor, return to ER for new or worsening symptoms.] Vital signs are stable, patient is afebrile and nontoxic in appearance. Rapid strep is pending, patient's care is signed out to Leandra Golden NP at 2305 Rapid strep negative. Continues to have non toxic appearance with stable vital signs. discussed home care, follow up with primary in 1-2 days and return precautions. Dragon Disclaimer Dragon Disclaimer This electronic medical record was generated, in whole or in part, using a voice recognition dictation system. Departure Departure Impression: Primary Impression: Pneumonia Disposition: HOME, SELF-CARE Condition: STABLE Referrals: NO PCP (PCP) Patient Instructions: Pneumonia, Adult, [id number] Scripts Albuterol Sulfate (PROAIR HFA INHALER) 8.5 Gm Hfa.aer.ad 1 PUFF INH PRN Q6HRS PRN for SHORTNESS OF BREATH, #1 INHALER 0 Refills Prov: CESILIA BURT APRN 07/16/18 Prednisone (PREDNISONE) 50 Mg Tablet 50 MG PO DAILY for 4 Days, #4 TAB 0 Refills Prov: CESILIA BURT APRN 07/16/18 Azithromycin (AZITHROMYCIN PACKET) 1 Gm Packet 1 PACKET PO ONCE, #1 PACKET 0 Refills Prov: CESILIA BURT APRN 07/16/18 Attending Signature Attending Signature I have reviewed the PA/APPLICATIONS CONSULTANT's note and plan of care. I was available for consultation as needed during the patient's visit in the emergency department. I agree with the clinical impression, plan, and disposition. CESILIA BURT APRN Jul 16, 2018 21:54 LEANDRA GOLDEN APRN Jul 17, 2018 01:05 ALEAX SANTOS DO Jul 23, 2018 05:02
[2018-07-16] MEDS ORDERED: IPRATRPIUM/ALBUTEROL 0.5/2.5MG 3 ML NEBU. NEB ONE (22:00)
[2018-07-16] MEDS ORDERED: predniSONE 20 MG TABLET PO ONE (22:00)
[2018-07-16] MEDS ORDERED: PRED50TA PO (22:34)
[2018-07-16] MEDS ORDERED: PROAIR HFA8.5 GM INH (22:34)
[2018-07-16] MEDS ORDERED: AZIT1PAC9 PO (22:34)
--- NOTE | 2018-07-17 02:43 | RAD ---
Examination: 2 views of the chest HISTORY: History of cough, wheezing COMPARISON: 01/07/2018 FINDINGS: Low lung volumes accentuates heart size and pulmonary vascularity. Focus of consolidation identified in the inferior aspect of the posterior right upper lobe of the lung likely pneumonia. IMPRESSION: Moderate airspace opacity identified in the inferior aspect of the right upper lobe of the lung posteriorly likely pneumonia. Close interval follow-up to resolution is recommended. Electronically signed by: Julián Rai MD (07/17/2018 2:39 AM) [facility]
== END 2018-07-17 00:21 | disposition home or self-care (01) ==
LOC: ER 20:56
DX: J18.9 Pneumonia, unspecified organism (principal); I10 Essential (primary) hypertension; Z87.442 Personal history of urinary calculi
CPT/HCPCS: 71046; 87070; 87880; 94640; 99285; J7512; J7620; 99283

== ENCOUNTER 2019-04-06 16:23 | Emergency (ER) | payer SELFPAY ==
[~2019-04-06] VITALS: Ht 175.3 cm; Wt 94.3 kg
[~2019-04-06 16:23] MED LIST: ALBU2.5V8 INH; AZIT1PAC9 PO; PRED50TA PO
[2019-04-06 17:56] VITALS: BP 137/94
--- NOTE | 2019-04-06 18:38 | PHYS DOC ---
Past Medical History Past Medical History: Hypertension, Kidney Stone, Pneumonia Past Surgical History: Other Additional Past Surgical Histo: kidney stones, lt foot sx Alcohol Use: None Drug Use: None Adult General Chief Complaint Chief Complaint: SKIN RASH/ABSCESS [facility] HPI Patient is a 43 year old male that presents with a diffuse rash that has been ongoing for a year. The rash is on his arms, torso, back and the worst in on his behind. Denies pain but states it is itchy. He has tried, Benadryl, Hydrocortisone, Bactrim, and Keflex, and steroids which is not working. Review of Systems Review of Systems Constitutional: Denies fever or chills [] Eyes: Denies change in visual acuity, redness, or eye pain [] HENT: Denies nasal congestion or sore throat [] Respiratory: Denies cough or shortness of breath [] Cardiovascular: No additional information not addressed in HPI [] GI: Denies abdominal pain, nausea, vomiting, bloody stools or diarrhea [] : Denies dysuria or hematuria [] Musculoskeletal: Denies back pain or joint pain [] Integument: Reports diffuse rash or skin lesions [] Neurologic: Denies headache, focal weakness or sensory changes [] Endocrine: Denies polyuria or polydipsia [] Complete systems were reviewed and found to be within normal limits, except as documented in this note. Allergies Allergies Allergies Coded Allergies Type Severity Reaction Last Updated Verified No Known Drug Allergies 01/15/14 No Physical Exam Physical Exam Constitutional: Well developed, well nourished, no acute distress, non-toxic appearance. [] HENT: Normocephalic, atraumatic, bilateral external ears normal, oropharynx moist, no oral exudates, nose normal. [] Eyes: PERRLA, EOMI, conjunctiva normal, no discharge. [] Neck: Normal range of motion, no tenderness, supple, no stridor. [] Cardiovascular:Heart rate regular rhythm, no murmur [] Lungs & Thorax: Bilateral breath sounds clear to auscultation [] Abdomen: Bowel sounds normal, soft, no tenderness, no masses, no pulsatile masses. [] Skin: Warm, dry, no erythema, diffuse rash on arms, behind, legs, and torso. Back: No tenderness, no CVA tenderness. [] Extremities: No tenderness, no cyanosis, no clubbing, ROM intact, no edema. [] Neurologic: Alert and oriented X 3, normal motor function, normal sensory function, no focal deficits noted. [] Psychologic: Affect normal, judgement normal, mood normal. [] Current Patient Data Vital Signs Vital Signs Date Time Temp Pulse Resp B/P (MAP) Pulse Ox O2 Delivery O2 Flow Rate FiO2 04/06/19 17:56 97.6 84 18 137/94 (108) 97 Room Air 97.6 EKG EKG [] Radiology/Procedures Radiology/Procedures [] Course & Med Decision Making Course & Med Decision Making Pertinent Labs and Imaging studies reviewed. (See chart for details) Unsure what kind of rash this is. Will refer to a anesthesiology technologist. Dragon Disclaimer Dragon Disclaimer This electronic medical record was generated, in whole or in part, using a voice recognition dictation system. Departure Departure Impression: Primary Impression: Rash Disposition: HOME, SELF-CARE Condition: STABLE Referrals: NO PCP (PCP) DORA HINOJOSA MD Patient Instructions: Rash Additional Instructions: Please follow up with Dr. Hinojosa, a anesthesiology technologist for further workup. ALEXA WALDEN APRN Apr 06, 2019 18:38
== END 2019-04-06 19:17 | disposition home or self-care (01) ==
LOC: ER 16:23
DX: R21 Rash and other nonspecific skin eruption (principal); I10 Essential (primary) hypertension; Z87.442 Personal history of urinary calculi
CPT/HCPCS: 99281

== ENCOUNTER 2021-01-09 06:34 | Emergency (ER) | payer SELFPAY ==
[~2021-01-09] VITALS: Ht 172.7 cm; Wt 81.8 kg
--- NOTE | 2021-01-09 06:50 | EKG ---
[facility] [address] [place] [address] Test Date: 2021-01-09 Test Time: 06:38:39 Pat Name: ZEE PRATT Department: Room: Gender: Sales Promotion Representative: : 1975 Requested By: APRIL PAZ Order Number: [id number] Reading MD: Measurements Intervals [place] Rate: 69 P: 48 TN: 146 QRS: 49 QRSD: 84 T: 61 QT: 364 QTc: 391 Interpretive Statements SINUS RHYTHM NO SPECIFIC ECG ABNORMALITIES RI6.02 No previous ECG available for comparison
[2021-01-09] MEDS ORDERED: KETOROLAC 30 MG/ML VIAL. ONE (07:14)
[2021-01-09] MEDS: KETOROLAC 60 MG/2 ML VIAL. IM ONE (07:15)
--- NOTE | 2021-01-09 07:18 | ED.ADGEN ---
Past Medical History Past Medical History: Asthma, Lung Disease Additional Past Medical Histor: pneumothorax w chest tube Past Surgical History: Other Additional Past Surgical Histo: left foot Smoking Status: Never Smoker Alcohol Use: Sober Drug Use: None Social History Narrative: clean for 5 years years General Adult EDM: Chief Complaint: CHEST PAIN HPI: HPI: Patient is a 45-year-old male who presents to the emergency room complaining of burning in his right fingers that is now starting in his left fingers. He states it to his first second and third fingers. Is been constant for the last 3 days. It started on the left hand last night. He states the burning pain is severe. He started to get pain that shoots up his arm. He has not noticed any redness or swelling. He denies any kind of trauma. He denies any, neck pain. He states that the pain does radiate into his chest but he otherwise does not have any chest pain. He denies any kind of shortness of breath, cough, URI symptoms, back pain, dizziness, diaphoresis, abdominal pain, nausea, vomiting. Review of Systems: Review of Systems: Complete ROS is negative unless otherwise documented in HPI Current Medications: Current Medications Medications (Trade) Dose Ordered Sig/Donal Start Time Stop Time Status Last Admin Dose Admin Dexamethasone Sodium Phosphate (Decadron) 10 mg 1X ONCE 01/09/21 07:15 01/09/21 07:16 DC 01/09/21 07:40 10 MG Gabapentin (Neurontin) 300 mg 1X ONCE 01/09/21 07:15 01/09/21 07:16 DC 01/09/21 07:39 300 MG Ketorolac Tromethamine (Toradol 30mg Vial) 30 mg 1X ONCE 01/09/21 07:30 01/09/21 07:31 DC 01/09/21 07:39 30 MG Ketorolac Tromethamine (Toradol Im) 60 mg 1X ONCE 01/09/21 07:15 01/09/21 07:18 DC Allergies: Allergies: Allergies Coded Allergies Type Severity Reaction Last Updated Verified No Known Drug Allergies 01/15/14 No Physical Exam: PE: General: Awake, alert, NAD. Well Nourished, well hydrated. Cooperative HEENT: Atraumatic, EOMI, PERRL, airway patent, moist oral mucosa Neck: Supple, trachea midline Respiratory: CTA bilaterally, normal effort, no wheezing/crackles CV: RRR, no murmur, cap refill <2 GI: Soft, nondistended, nontender, no masses MSK: No obvious deformities, Positive Tinsel sign, FROM in all joints, no swelling or rash Skin: Warm, dry, intact Neuro: A&O x3, speech NL, sensory and motor grossly intact, no focal deficits Psych: Normal affect, normal mood, not suicidal or homicidal Current Patient Data: Labs: Laboratory Tests Test 01/09/21 06:45 White Blood Count 10.3 x10^3/uL (4.0-11.0) Red Blood Count 5.16 x10^6/uL (4.30-5.70) Hemoglobin 16.1 g/dL (13.0-17.5) Hematocrit 47.3 % (39.0-53.0) Mean Corpuscular Volume 92 fL (79-100) Mean Corpuscular Hemoglobin 31 pg (25-35) Mean Corpuscular Hemoglobin Concent 34 g/dL (31-37) Red Cell Distribution Width 13.2 % (11.5-14.5) Platelet Count 250 x10^3/uL (140-400) Neutrophils (%) (Auto) 57 % (31-73) Lymphocytes (%) (Auto) 26 % (24-48) Monocytes (%) (Auto) 8 % (0-9) Eosinophils (%) (Auto) 9 % (0-3) H Basophils (%) (Auto) 1 % (0-3) Neutrophils # (Auto) 5.8 x10^3/uL (1.8-7.7) Lymphocytes # (Auto) 2.7 x10^3/uL (1.0-4.8) Monocytes # (Auto) 0.8 x10^3/uL (0.0-1.1) Eosinophils # (Auto) 0.9 x10^3/uL (0.0-0.7) H Basophils # (Auto) 0.1 x10^3/uL (0.0-0.2) Sodium Level 142 mmol/L (136-145) Potassium Level 3.6 mmol/L (3.5-5.1) Chloride Level 106 mmol/L (98-107) Carbon Dioxide Level 25 mmol/L (21-32) Anion Gap 11 (6-14) Blood Urea Nitrogen 17 mg/dL (8-26) Creatinine 0.9 mg/dL (0.7-1.3) Estimated GFR (Cockcroft-Gault) 90.4 Glucose Level 111 mg/dL (70-99) H Calcium Level 8.1 mg/dL (8.5-10.1) L Troponin I Quantitative < 0.017 ng/mL (0.000-0.055) Laboratory Tests 01/09/21 06:45 Laboratory Tests 01/09/21 06:45 Vital Signs: Vital Signs Date Time Temp Pulse Resp B/P (MAP) Pulse Ox O2 Delivery O2 Flow Rate FiO2 01/09/21 06:38 97.7 73 16 133/89 (104) 94 Room Air 97.7 EKG: EKG: [] Heart Score: C/O Chest Pain: Yes HEART Score for Chest Pain: HEART Score for Chest Pain Response (Comments) Value History Slighlty/Non-Suspicious 0 ECG Normal 0 Age >45 - < 65 1 Risk Factors No Risk Factors 0 Troponin < Normal Limit 0 Total 1 Risk Factors: Risk Factors: DM, Current or recent (<one month) smoker, HTN, HLP, family history of CAD, obesity. Risk Scores: Score 0 - 3: 2.5% MACE over next 6 weeks - Discharge Home Score 4 - 6: 20.3% MACE over next 6 weeks - Admit for Clinical Observation Score 7 - 10: 72.7% MACE over next 6 weeks - Early Invasive Strategies Radiology/Procedures: Radiology/Procedures: [] Course & Med Decision Making: Course & Med Decision Making Pertinent Labs and Imaging studies reviewed. (See chart for details) Patient is a 45-year-old male who presents to the emergency room complaining of burning in his right 1 through 3 fingers that is now starting on the left side as well. He does have some shooting pain which could signify cervical radiculopathy. He does not have any neck pain. Symptoms are most consistent with carpal tunnel syndrome. There is no kind of swelling, deformity, signs of infection. He does state that he gets some sharp pain shooting through his chest from his fingers. He does not have any other kind of chest pain. Is not having any associated symptoms. EKG is normal. Chest x-ray is normal. Patient symptoms are most consistent with carpal tunnel syndrome. I discussed with the patient that if he does develop chest pain that does not seem to be coming from his arms then he should return to the emergency room for reevaluation. I discussed with him getting cock-up splints at home to wear at night. We will do Decadron and gabapentin here in the emergency room. Patient's test results and vitals while in the ED were fully reviewed and discussed with the patient. Patient is stable and at this time does not need admission to the hospital. We have discussed strict return precautions and the importance of following up with their Primary Care Physician. Patient stated understanding and was given an opportunity to ask any questions. Patient is in agreement with plan. Dragon Disclaimer: Dragon Disclaimer: This electronic medical record was generated, in whole or in part, using a voice recognition dictation system. Departure Departure Impression: Primary Impression: Carpal tunnel syndrome, bilateral Disposition: 01 DC HOME SELF CARE/HOMELESS Condition: STABLE Referrals: NO PCP (PCP) JOSE ARMANDO RIVERS MD Patient Instructions: Carpal Tunnel Syndrome, [place]Ve[place] Additional Instructions: We recommend getting cock-up or carpal tunnel wrist splints to wear at night. If symptoms persist, please follow up with orthopedic surgery. If you develop worsening chest pain or shortness of breath, nausea, or sweating with chest pain please return to the Emergency Room for evaluation. Scripts Prednisone (PREDNISONE) 50 Mg Tablet 1 TAB PO DAILY, #5 TAB Prov: APRIL PAZ MD 01/09/21 APRIL PAZ MD Jan 09, 2021 07:18
--- NOTE | 2021-01-09 07:33 | RAD ---
EXAM: XR CHEST 2V 01/09/2021 7:13 AM CLINICAL INDICATION: Right-sided chest pain COMPARISON: Chest radiograph 07/16/2018 TECHNIQUE: PA and lateral views of the chest FINDINGS: The heart and mediastinum are normal. Lungs are well-expanded and clear. No consolidatio n, pleural effusion, or pneumothorax. Pulmonary vascularity is normal. The thoracic skeleton is int act. IMPRESSION: Normal chest radiograph. Electronically signed by: Mariajose Davila MD (01/09/2021 7:30 AM) [id number]
[2021-01-09] MEDS: KETOROLAC 30 MG/ML VIAL. IVP ONE (07:39)
[2021-01-09] MEDS: GABAPENTIN 300 MG CAPSULE. PO ONE (07:39)
[2021-01-09] MEDS: DEXAMETHASONE SOD PHOS 4 MG/ML VIAL IVP ONE (07:40)
[2021-01-09 07:43] LABS: BASO # 0.1 x10^3/uL (0.0-0.2); BASO % 1 % (0-3); EOS # 0.9 x10^3/uL (0.0-0.7); EOS % 9 % (0-3); HEMATOCRIT 47.3 % (39.0-53.0); HEMOGLOBIN 16.1 g/dL (13.0-17.5); LYMPH # 2.7 x10^3/uL (1.0-4.8); LYMPH % 26 % (24-48); MEAN CORPUSCULAR HEMOGLOBIN 31 pg (25-35); MEAN CORPUSCULAR HGB CONC 34 g/dL (31-37); MEAN CORPUSCULAR VOLUME 92 fL (79-100); MONO # 0.8 x10^3/uL (0.0-1.1); MONO % 8 % (0-9); NEUT # 5.8 x10^3/uL (1.8-7.7); NEUT % 57 % (31-73); PLATELET COUNT 250 x10^3/uL (140-400); RED BLOOD COUNT 5.16 x10^6/uL (4.30-5.70); RED CELL DISTRIBUTION WIDTH 13.2 % (11.5-14.5); WHITE BLOOD COUNT 10.3 x10^3/uL (4.0-11.0)
[2021-01-09 07:47] LABS: CALCIUM 8.1 mg/dL (8.5-10.1); CREATININE 0.9 mg/dL (0.7-1.3); GFR 90.4; POTASSIUM 3.6 mmol/L (3.5-5.1)
[2021-01-09] MEDS ORDERED: PRED50TA PO (08:06)
[2021-01-09 08:39] VITALS: BP 142/99
== END 2021-01-09 09:09 | disposition home or self-care (01) ==
LOC: ER 06:34
DX: G56.03 Carpal tunnel syndrome, bilateral upper limbs (principal); J45.909 Unspecified asthma, uncomplicated
CPT/HCPCS: 36415; 71046; 80048; 84484; 85025; 93005; 96374; 96375; 99285; J1100; J1885

== ENCOUNTER 2022-03-11 08:08 | Emergency (ER) | payer SELFPAY ==
[~2022-03-11] VITALS: Ht 172.7 cm; Wt 81.8 kg
[2022-03-11 08:47] VITALS: BP 131/88
[2022-03-11 09:14] LABS: CALCIUM 8.7 mg/dL (8.5-10.1); CREATININE 1.1 mg/dL (0.7-1.3); GFR 71.4; POTASSIUM 3.5 mmol/L (3.5-5.1)
[2022-03-11 09:18] LABS: ACETAMIN < 2 mcg/ml (10-30); ALBUMIN 3.8 g/dL (3.4-5.0); DIRECT BILIRUBIN 0.2 mg/dL (0.0-0.2); ETHANOL < 10 mg/dL (0-10); TOTAL BILIRUBIN 0.8 mg/dL (0.2-1.0); TOTAL PROTEIN 7.5 g/dL (6.4-8.2)
[2022-03-11 09:47] LABS: BASO % 0 % (0-3); EOS # 0.1 x10^3/uL (0.0-0.7); EOS % 2 % (0-3); HEMATOCRIT 44.4 % (39.0-53.0); HEMOGLOBIN 15.3 g/dL (13.0-17.5); LYMPH # 1.5 x10^3/uL (1.0-4.8); LYMPH % 20 % (24-48); MEAN CORPUSCULAR HEMOGLOBIN 31 pg (25-35); MEAN CORPUSCULAR HGB CONC 35 g/dL (31-37); MEAN CORPUSCULAR VOLUME 90 fL (79-100); MONO # 0.5 x10^3/uL (0.0-1.1); MONO % 7 % (0-9); NEUT # 5.3 x10^3/uL (1.8-7.7); NEUT % 71 % (31-73); PLATELET COUNT 244 x10^3/uL (140-400); RED BLOOD COUNT 4.95 x10^6/uL (4.30-5.70); WHITE BLOOD COUNT 7.5 x10^3/uL (4.0-11.0)
[2022-03-11 09:52] LABS: SALIC 0.3 mg/dL (2.8-20.0)
[2022-03-11 10:59] LABS: BILIRUBIN,URINE NEGATIVE (NEG); CLARITY,URINE CLEAR; COLOR,URINE YELLOW
[2022-03-11 11:00] LABS: NITRITE,URINE NEGATIVE (NEG); PROTEIN,URINE NEGATIVE (NEG-TRACE); UROBILINOGEN,URINE 0.2 mg/dL (0.2 mg/dL)
[2022-03-11 11:01] LABS: RBC,URINE 0 /HPF (0-2)
[2022-03-11 11:02] LABS: BACTERIA,URINE 0 /HPF (0-FEW); WBC,URINE RARE /HPF (0-4)
[2022-03-11 11:05] LABS: AMPHETAMINE/METHAMPHETAMINE POS (NEG); BARBITURATES NEG (NEG); BENZODIAZEPINES NEG (NEG); CANNABINOIDS NEG (NEG); COCAINE NEG (NEG); METHADONE NEG (NEG); OPIATES NEG (NEG); PHENCYCLIDINE NEG (NEG)
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
== END 2022-03-11 11:28 | disposition home or self-care (01) ==
LOC: ER 08:08
DX: R45.851 Suicidal ideations (principal); J45.909 Unspecified asthma, uncomplicated; Z20.822 Contact with and (suspected) exposure to COVID-19
CPT/HCPCS: 36415; 80048; 80076; 80307; 80329; 81001; 84443; 85025; 87426; 99285; C9803; G0480; U0003